=== PATIENT | female | born 1990 | race American Indian/Alaskan Native ===

== ENCOUNTER 2019-07-19 18:09 | Emergency (ER) | payer MEDICAID ==
--- NOTE | 2019-07-19 18:25 | Event Note ---
ED Screening Note Date of service: 07/19/19 ED Screening Note: This initial assessment/diagnostic orders/clinical plan/treatment(s) is/are subject to change based on patients health status, clinical progression and re- assessment by fellow clinical providers in the ED. Further treatment and workup at subsequent clinical providers discretion. Patient/guardian urged not to elope from the ED as their condition may be serious if not clinically assessed and managed. Initial orders include: 28 yo BF states that she has abdominal pain x 1 day.
[2019-07-19 19:48] LABS: Hematocrit 43.2 % (30.3-42.9); Hemoglobin 14.5 gm/dl (10.1-14.3); Mean Corpuscular HGB Conc 34 % (30-34); Mean Corpuscular Volume 97 fl (79-97); Platelet Count 223 K/mm3 (140-440); Red Blood Count 4.47 M/mm3 (3.65-5.03); Red Cell Distribution Width 13.8 % (13.2-15.2)
[2019-07-19 19:52] LABS: Alanine Aminotransferase 9 units/L (7-56); Albumin 4.6 g/dL (3.9-5); BUN/Creatinine Ratio 16; Blood Urea Nitrogen 11 mg/dL (7-17); Calcium 9.5 mg/dL (8.4-10.2); Hemolysis Index 25
[2019-07-19] MEDS ORDERED: KETOROLAC 30 MG/1 ML INJ IV ONE (20:12)
[2019-07-19] MEDS ORDERED: ONDANSETRON 4 MG/2 ML INJ IV ONE ×2 (20:12→22:45)
[2019-07-19] MEDS ORDERED: DICYCLOMINE 20 MG/2 ML INJ IM ONE (20:12)
[2019-07-19] MEDS ORDERED: SODIUM CHLORIDE 0.9% 1000 ML 1,000 ML IV ONE (20:12)
[2019-07-19] MEDS ORDERED: ZIPRASIDONE MESYLATE 20 MG VIAL IM ONE (20:20)
[2019-07-19 22:45] VITALS: BP 125/83
--- NOTE | 2019-07-19 23:03 | Emergency Department Report ---
<SHABNAM BENSON - Last Filed: 07/19/19 23:01> ED Abdominal Pain HPI - General Chief Complaint: Abdominal Pain Stated Complaint: ABD PAIN Time Seen by Provider: 07/19/19 19:58 Source: patient Mode of arrival: Wheelchair Limitations: No Limitations - History of Present Illness Initial Comments: Patient is a 28-year-old female who is presenting with diffuse abdominal pain nausea vomiting. Patient has a history of diverticulitis. Patient states that her abdomen started hurting this morning and is diffuse 10 out 10 pain. The patient is a poor historian secondary to the pain she is having a hard time talking. She denies dysuria or fevers chills, cold or congestion. Severity scale (0 -10): 10 - Related Data Previous Rx's Medication Instructions Recorded Last Taken Type Dicyclomine [Bentyl] 20 mg PO QID PRN #20 tablet 12/08/18 Unknown Rx Promethazine [Phenergan TAB] 25 mg PO Q6HR PRN #20 tab 12/08/18 Unknown Rx Promethazine HCl [Promethazine TAB] 12.5 mg PO [id number] 2 Days #8 tab 07/20/19 Unknown Rx cephALEXin [Keflex] 500 mg PO Q6HR 5 Days #20 capsule 07/20/19 Unknown Rx Allergies Allergy/AdvReac Type Severity Reaction Status Date / Time famotidine [From Pepcid] Allergy Unknown Verified 12/08/18 22:09 hydromorphone [From Dilaudid] Allergy Unknown Verified 12/08/18 22:09 ED Review of Systems Comment: All other systems reviewed and negative ED Past Medical Hx - Past Medical History Previous Medical History?: Yes Hx Deep Vein Thrombosis: Yes Hx Asthma: Yes Additional medical history: MS. Diverticulitis - Surgical History Past Surgical History?: Yes Additional Surgical History: D&C, L knee - Social History Smoking Status: Former Smoker - Medications Home Medications: Home Medications Medication Instructions Recorded Confirmed Last Taken Type Dicyclomine [Bentyl] 20 mg PO QID PRN #20 tablet 12/08/18 Unknown Rx Promethazine [Phenergan TAB] 25 mg PO Q6HR PRN #20 tab 12/08/18 Unknown Rx Promethazine HCl [Promethazine TAB] 12.5 mg PO [id number] 2 Days #8 tab 07/20/19 Unknown Rx cephALEXin [Keflex] 500 mg PO Q6HR 5 Days #20 capsule 07/20/19 Unknown Rx ED Physical Exam - General Limitations: No Limitations General appearance: alert, anxious, in distress - Head Head exam: Present: atraumatic, normocephalic - Eye Eye exam: Present: normal appearance, PERRL, EOMI - ENT ENT exam: Present: normal orophraynx, mucous membranes moist - Neck Neck exam: Present: normal inspection - Respiratory Respiratory exam: Present: normal lung sounds bilaterally. Absent: respiratory distress, wheezes, rales, rhonchi - Cardiovascular Cardiovascular Exam: Present: regular rate, normal rhythm, normal heart sounds. Absent: systolic murmur, diastolic murmur, rubs, gallop - GI/Abdominal GI/Abdominal exam: Present: soft, tenderness, normal bowel sounds. Absent: distended, guarding, rebound, rigid - Extremities Exam Extremities exam: Present: normal inspection - Back Exam Back exam: Present: normal inspection - Neurological Exam Neurological exam: Present: alert, oriented X3 - Psychiatric Psychiatric exam: Present: normal affect, normal mood - Skin Skin exam: Present: warm, dry, intact, normal color. Absent: rash ED Medical Decision Making - Lab Data Result diagrams: 07/19/19 19:08 07/19/19 19:11 Lab Results 07/19/19 07/19/19 Range/Units 19:08 19:11 WBC 9.6 (4.5-11.0) K/mm3 RBC 4.47 (3.65-5.03) M/mm3 Hgb 14.5 H (10.1-14.3) gm/dl Hct 43.2 H (30.3-42.9) % MCV 97 (79-97) fl MCH 32 (28-32) pg MCHC 34 (30-34) % RDW 13.8 (13.2-15.2) % Plt Count 223 (140-440) K/mm3 Lymph % (Auto) [employer] [place] % (Auto) [employer] Eos % (Auto) [employer] Baso % (Auto) [employer] Lymph # [employer] [place] # [employer] Eos # [employer] Baso # [employer] Seg Neutrophils % [employer] Seg Neutrophils # [employer] Sodium 138 (137-145) mmol/L Potassium 3.5 L (3.6-5.0) mmol/L Chloride 101.0 (98-107) mmol/L Carbon Dioxide 18 L (22-30) mmol/L Anion Gap 23 mmol/L BUN 11 (7-17) mg/dL Creatinine 0.7 (0.7-1.2) mg/dL Estimated GFR > 60 ml/min BUN/Creatinine Ratio 16 % Glucose 122 H (65-100) mg/dL Calcium 9.5 (8.4-10.2) mg/dL Total Bilirubin 0.40 (0.1-1.2) mg/dL AST 16 (5-40) units/L ALT 9 (7-56) units/L Alkaline Phosphatase 39 (35-129) units/L Total Protein 7.8 (6.3-8.2) g/dL Albumin 4.6 (3.9-5) g/dL Albumin/Globulin Ratio 1.4 % ED Disposition Clinical Impression: Abdominal pain, Urinary tract infection Disposition: TO HOME OR SELFCARE Condition: Stable Instructions: Abdominal Pain (ED), Urinary Tract Infection in Women (ED) Prescriptions: Promethazine HCl [Promethazine TAB] 12.5 mg PO [id number] 2 Days #8 tab cephALEXin [Keflex] 500 mg PO Q6HR 5 Days #20 capsule Referrals: [facility] [Outside] - 3-5 Days <ANNMARIE BENSON - Last Filed: 07/20/19 00:34> ED Review of Systems ROS: Stated complaint: ABD PAIN Other details as noted in HPI ED Course Vital Signs 07/19/19 07/19/19 07/19/19 18:14 18:19 20:00 Temperature 97.5 F L Pulse Rate 57 L 74 Respiratory 18 20 27 H Rate Blood Pressure 121/94 O2 Sat by Pulse 99 99 Oximetry 07/19/19 07/19/19 07/19/19 20:16 20:30 20:46 Temperature Pulse Rate 53 L 57 L 55 L Respiratory 56 H 18 19 Rate Blood Pressure 126/65 126/65 105/54 O2 Sat by Pulse 100 100 100 Oximetry 07/19/19 07/19/19 07/19/19 21:00 21:15 21:30 Temperature Pulse Rate 46 L 44 L 47 L Respiratory 18 14 12 Rate Blood Pressure 105/54 87/66 115/69 O2 Sat by Pulse 100 99 100 Oximetry 07/19/19 07/19/19 07/19/19 21:45 22:00 22:15 Temperature Pulse Rate 47 L 50 L 56 L Respiratory 17 16 10 L Rate Blood Pressure 122/68 122/68 125/83 O2 Sat by Pulse 100 100 Oximetry 07/19/19 22:38 Temperature Pulse Rate Respiratory Rate Blood Pressure O2 Sat by Pulse 100 Oximetry ED Medical Decision Making - Lab Data Result diagrams: 07/19/19 19:08 07/19/19 19:11 - Radiology Data Radiology results: report reviewed CT abdomen and pelvis: No acute findings according to radiologist's impression - Medical Decision Making I evaluated Mrs. Fernández. She has nausea and abdominal discomfort. She is currently laying on her abdomen moving side to side. She told me that she was encouraged to stop using marijuana due to recurrent symptoms of "gastritis". She was able to give a full history. Impression diagnosis includes IBS, cannabis hyperemesis syndrome. Urinalysis positive for UTI. I reviewed labs CBC within normal limits. No leukocytosis. No anemia. No electrolyte disturbance. Prescribed cephalexin and promethazine. Discharged home. Critical care attestation.: If time is entered above; I have spent that time in minutes in the direct care of this critically ill patient, excluding procedure time. ED Disposition Is pt being admited?: No Does the pt Need Aspirin: No
[2019-07-19 23:30] LABS: Bacteria,Urine 3+ /HPF (Negative); Bilirubin,Urine NEG (Negative); Blood,Urine LG (Negative); Color,Urine Red (Yellow); Mucus,Urine 2+ /HPF; Urobilinogen,Urine < 2.0 mg/dL (<2.0)
[2019-07-19 23:36] LABS: RBC,Urine > 182.0 /HPF (0.0-6.0); WBC,Urine > 182.0 /HPF (0.0-6.0)
[2019-07-19 23:40] LABS: HCG Qualitative,Urine Negative (Negative)
[2019-07-20 00:02] LABS: Amphetamine Screen,Urine PRESUMPTIVE NEGATIVE; Benzodiazepines Screen,Urine PRESUMPTIVE NEGATIVE; Cocaine Screen,Urine PRESUMPTIVE NEGATIVE; Methadone Screen,Urine PRESUMPTIVE NEGATIVE; Opiate Screen,Urine PRESUMPTIVE NEGATIVE
--- NOTE | 2019-07-20 00:24 | Cat Scan Report ---
CT ABDOMEN AND PELVIS WITH IV CONTRAST INDICATION: severe abd pain. COMPARISON: None available. TECHNIQUE: Axial CT images were obtained through the abdomen and pelvis after 100 mL IV contrast. All CT scans a t this location are performed using CT dose reduction for ALARA by means of automated exposure contro l. FINDINGS -- ABDOMEN: Lung Bases: No acute abnormality. Liver: Normal. Gallbladder: Normal. Bile Ducts: Normal. Pancreas: Normal. Spleen: Normal. Adrenals: Normal. Right Kidney and Proximal Ureter: Normal. Left Kidney and Proximal Ureter: Normal. Stomach and Bowel: Normal. Lymph Nodes: No significant adenopathy. Aorta: No significant abnormality. IVC: Normal. Additional Findings: None. FINDINGS -- PELVIS: Urinary Bladder and Distal Ureters: Normal. Reproductive Organs: No acute abnormality. Appendix: Normal. Bowel: No acute abnormality. Free Fluid: None. Lymph Nodes: No significant adenopathy. Additional Findings: None. Skeletal System: No acute abnormality. IMPRESSION: 1. No acute process in the abdomen or pelvis. Signer Name: Winston Muniz MD Signed: 07/20/2019 12:20 AM Workstation Name: [id number]
[2019-07-20 00:30] LABS: Cannabinoid Screen,Urine PRESUMPTIVE POSITIVE
[2019-07-20] MEDS ORDERED: MORPHINE 4 MG/1 ML INJ IV ONE (00:34)
[2019-07-20] MEDS ORDERED: FAMOTIDINE 20 MG/2 ML INJ IV ONE (00:34)
[2019-07-20] MEDS ORDERED: ONDANSETRON 4 MG/2 ML INJ IV ONE (00:35)
== END 2019-07-20 01:53 | disposition home or self-care (01) ==
LOC: ED 18:09
DX: N39.0 Urinary tract infection, site not specified (principal); J45.909 Unspecified asthma, uncomplicated; Z87.891 Personal history of nicotine dependence; Z79.899 Other long term (current) drug therapy; Z88.8 Allergy status to other drugs, medicaments and biological substances; Z86.711 Personal history of pulmonary embolism; Z79.01 Long term (current) use of anticoagulants
CPT/HCPCS: 36415; 74177; 80053; 80307; 81001; 81025; 85025; 96361; 96372; 96374; 96375; 96376; 99284; J0500; J1885; J2270; J2405; J3486; J7030; Q9967